=== PATIENT | male | born 1965 ===

== ENCOUNTER 2018-12-05 04:06 | Emergency (ER) | payer OTHER ==
[~2018-12-05] VITALS: Ht 177.8 cm; Wt 120.2 kg
[2018-12-05] MEDS ORDERED: COZAAR100 MG (04:27)
[2018-12-05] MEDS ORDERED: JANUMET 50-1,01 EACH (04:28)
[2018-12-05] MEDS ORDERED: ULTRAM50 MG PO (12:48)
[2018-12-05] MEDS ORDERED: VOLTAREN-XR100 MG PO (12:48)
[2018-12-05] MEDS ORDERED: SKELAXIN800 MG PO (12:48)
== END 2018-12-05 13:40 | disposition home or self-care (01) ==
LOC: ER 04:06
DX: I16.0 Hypertensive urgency (principal); I10 Essential (primary) hypertension; M54.89 Other dorsalgia